=== PATIENT | male | born 1975 | race Hispanic/Latino ===

== ENCOUNTER 2024-01-30 12:59 | Emergency (ER) | payer SELFPAY ==
[~2024-01-30] VITALS: Ht 170.2 cm; Wt 72.6 kg
[2024-01-30] MEDS: 0.9%NACL 1000ML 1,000 ML IV ONE (14:10)
[2024-01-30] MEDS: ketOROlac 30MG VIAL (30MG/ML) IVP ONE (14:10)
[2024-01-30] MEDS ORDERED: tamSULOsin HCL 0.4 MG CAP.ER.24H PO ONE (14:30)
[2024-01-30 14:41] LABS: BASOPHILS # (AUTO) 0.02 K/uL (0.00-0.20); BASOPHILS % (AUTO) 0.3 % (0.0-5.0); EOSINOPHILS # (AUTO) 0.13 K/uL (0.00-0.70); HEMATOCRIT 42.3 % (42-54); IMMATURE GRANULOCYTE ABSOLUTE 0.01 K/uL (0-1); LYMPHOCYTES # (AUTO) 1.4 K/uL (1.0-4.8); LYMPHOCYTES % (AUTO) 21.6 % (21.0-51.0); MEAN CORPUSCULAR HEMOGLOBIN 30.9 pg (27.0-33.0); MEAN CORPUSCULAR HGB CONC 34.8 g/dL (32.0-36.0); MEAN CORPUSCULAR VOLUME 89.1 fL (79-99); MONOCYTES # (AUTO) 0.6 K/uL (0.1-1.0); NEUTROPHILS # (AUTO) 4.4 K/uL (1.8-7.7); NEUTROPHILS % (AUTO) 66.9 % (40.0-77.0); PLATELET COUNT (AUTO) 223 K/uL (130-400); RED BLOOD CELL COUNT(AUTO) 4.75 MIL/uL (4.50-6.20); WHITE BLOOD COUNT (AUTO) 6.6 K/uL (4.8-10.8)
[2024-01-30 14:46] LABS: APPEARANCE,URINE CLEAR (CLEAR); BILIRUBIN,URINE NEGATIVE (NEGATIVE); COLOR,URINE LIGHT-YELLOW (YELLOW); GLUCOSE, URINE (UA) NEGATIVE (NEGATIVE); KETONES,URINE NEGATIVE (NEGATIVE); LEUKOCYTE ESTERASE ,URINE NEGATIVE Leu/uL (NEGATIVE); NITRATE,URINE NEGATIVE (NEGATIVE); PROTEIN,URINE NEGATIVE (NEGATIVE); UROBILINOGEN,URINE 0.2 mg/dL (0.2-1.0)
[2024-01-30 14:50] LABS: ADD UA MICROSCOPIC YES
[2024-01-30 14:53] VITALS: BP 155/89; PULSE 80; RESP 19; TEMP 98.7; O2SAT 99
[2024-01-30 14:55] LABS: CREATININE 0.8 mg/dL (0.5-1.3); MUCUS,URINE RARE LPF (None Seen); POTASSIUM 3.4 mmol/L (3.5-5.1); SQUAMOUS EPITHELIAL CELL,UR RARE /HPF (0-2); WBC,URINE 0-1 /HPF (0-1)
[2024-01-30] MEDS ORDERED: IBUP-1556 PO (15:22)
[2024-01-30] MEDS: PoTASSium BIcarbonate/CIT AC 25 MEQ TABLET.EFF PO ONE (15:24)
== END 2024-01-30 15:34 | disposition home or self-care (01) ==
LOC: EDH 12:59
DX: N20.0 Calculus of kidney (principal); N23 Unspecified renal colic; E87.6 Hypokalemia
CPT/HCPCS: 99285; 74176; 96374; 80048; 85025; 81001; 36415; J7030; J1885